=== PATIENT | female | born 1990 | race American Indian/Alaskan Native ===

== ENCOUNTER 2017-09-09 14:27 | Outpatient (CLI) | payer MEDICAID ==
--- NOTE | 2017-09-10 07:36 | Ultrasound Report ---
ULTRASOUND OB TRANSVAGINAL HISTORY: Secondary Nadiya FINDINGS: Transvaginal ultrasound images were obtained. The uterus is anteverted and measures 12.5 x 5.7 x 8.0 cm. An intrauterine is identified with heart rate measuring 162 beats per minute. Estimated age on ultrasound is 11 weeks, 2 days. Estimated due date 03/29/18. The placenta appears to be forming posteriorly. No subplacental collection. Amniotic fluid volume appears normal. The cervix is normal measuring 4.3 cm. The ovaries are normal size, contour and echotexture. No adnexal cyst or mass. No pelvic fluid collection. IMPRESSION: Viable single intrauterine as described. No acute abnormality is detected.
== END 2017-09-09 14:28 | disposition home or self-care (01) ==
LOC: US 14:27
PROVIDERS: ATTEND Nurse Practitioner Gerontology
DX: Z34.91 Encounter for supervision of normal pregnancy, unspecified, first trimester (principal); Z3A.11 11 weeks gestation of pregnancy
CPT/HCPCS: 76817